=== PATIENT | female | born 1995 | race Two or more races ===

== ENCOUNTER 2024-11-16 23:58 | Inpatient (IN) | payer OTHER ==
[2024-11-17] MEDS ORDERED: Carboprost Tromethamine 250 MCG/1 mL Vial IM PRN (02:16)
[2024-11-17] MEDS ORDERED: Sodium Chloride 0.9% 2.5 ML Syringe FLUSH PRN (02:16)
[2024-11-17] MEDS ORDERED: Misoprostol 25 MCG (1/4 of 100 MCG) Tab VAG PRN ×2 (02:16)
[2024-11-17] MEDS ORDERED: Terbutaline 1 MG/ML SDV SUBCUT PRN (02:16)
[2024-11-17] MEDS ORDERED: Water For Irrigation,Sterile 1,000 ML Container IRR PRN (02:16)
[2024-11-17] MEDS ORDERED: Sodium Chloride 0.9% 10 ML Syringe FLUSH PRN (02:16)
[2024-11-17] MEDS ORDERED: Ondansetron 4 MG/2 ML SDV IVPUSH PRN ×2 (02:16→16:50)
[2024-11-17] MEDS ORDERED: Oxytocin/0.9 % Sodium Chloride 30 UNIT/500 ML BAG IV SCH ×2 (02:30)
[2024-11-17] MEDS: Misoprostol 25 MCG (1/4 of 100 MCG) Tab PO PRN (03:25)
[2024-11-17 05:40] LABS: MEAN PLATELET VOLUME 10.0 fL (9.4-12.3); NRBC ABSOLUTE 0.00 K/uL (0.00-0.02); NRBC PERCENT 0.0 /100WBC (0.0-0.2); PLATELET COUNT,PLT 287 K/uL (150-400); RED BLOOD CELL COUNT 4.27 M/uL (4.10-5.30); WHITE BLOOD CELL COUNT,WBC 11.78 K/uL (3.9-11.3)
[2024-11-17] MEDS: Butorphanol 1 MG/ML SDV IVPUSH PRN (06:24)
[2024-11-17] MEDS: Lactated Ringers 1,000 ML IV SCH (06:41)
[2024-11-17] MEDS ORDERED: dexmedeTOMIDine HCl 200 MCG/2 ML SDV ONE (09:23)
[2024-11-17] MEDS: Ropivacaine HCl/PF 200 ML ONE (09:36)
[2024-11-17] MEDS ORDERED: ePHEDrine 50 MG/ML SDV IVPUSH PRN (09:47)
[2024-11-17] MEDS ORDERED: dexmedeTOMIDine HCl 200 MCG/2 ML SDV EPIDUR SCH (10:00)
[2024-11-17] MEDS ORDERED: Ropivacaine HCl/PF 400 MG in Premix Bag 1 BAG EPIDUR SCH (10:00)
[2024-11-17] MEDS ORDERED: Aluminum Hydroxide/Magnesium Hydroxide/Simethicone Susp 30 ML Cup PO PRN (16:50)
[2024-11-17 17:04] LABS: PH,UMBILICAL ARTERIAL 7.24 (7.18-7.38)
[2024-11-17 17:06] LABS: PH,UMBILICAL VENOUS 7.32 (7.25-7.45)
[2024-11-17] MEDS: Benzocaine/Menthol 20%-0.5% Spray 78 GM Cannister TOP PRN (22:52)
[2024-11-17] MEDS: Witch Hazel Medicated Pads 40/Jar TOP PRN (22:53)
[2024-11-18 05:48] LABS: BASOPHILS ABSOLUTE AUTO 0.02 K/uL (0.00-0.20); BASOPHILS PERCENT AUTO 0.1 % (0.0-1.0); EOSINOPHILS ABSOLUTE AUTO 0.02 K/uL (0.00-0.45); EOSINOPHILS PERCENT AUTO 0.1 % (0.0-6.0); IMMATURE GRAN ABSOLUTE AUTO 0.12 K/uL (0.00-0.05); IMMATURE GRAN PERCENT AUTO 0.6 % (0.0-0.4); LYMPHOCYTES ABSOLUTE AUTO 1.97 K/uL (1.00-4.80); LYMPHOCYTES PERCENT AUTO 10.0 % (24.0-44.0); MEAN PLATELET VOLUME 9.6 fL (9.4-12.3); MONOCYTES ABSOLUTE AUTO 1.12 K/uL (0.00-0.80); MONOCYTES PERCENT AUTO 5.7 % (0.0-8.0); NEUTROPHILS ABSOLUTE AUTO 16.36 K/uL (1.80-7.70); NEUTROPHILS PERCENT AUTO 83.5 % (41.0-71.0); NRBC ABSOLUTE 0.00 K/uL (0.00-0.02); NRBC PERCENT 0.0 /100WBC (0.0-0.2); PLATELET COUNT,PLT 259 K/uL (150-400); RED BLOOD CELL COUNT 3.58 M/uL (4.10-5.30); WHITE BLOOD CELL COUNT,WBC 19.61 K/uL (3.9-11.3)
[2024-11-18] MEDS: Lanolin 100% Cream 7 GM Tube TOP PRN (13:29)
== END 2024-11-19 14:30 | disposition home or self-care (01) | DRG 807 ==
LOC: MW.OBCHECK 23:58 → MW.OB 11-17 → MW.OBCHECK 11-17 02:27 → MW.OB 11-17 02:29 → OBSVTOIN 11-17 16:13 → MW.OB 11-17 22:05
PROVIDERS: ADMIT Obstetrics & Gynecology; ATTEND Obstetrics & Gynecology
PROC: 0KQM0ZZ Repair Perineum Muscle, Open Approach (ICD-10-PCS; principal; 2024-11-17)
PROC: 10E0XZZ Delivery of Products of Conception, External Approach (ICD-10-PCS; 2024-11-17)
PROC: 4A1HXCZ Monitoring of Products of Conception, Cardiac Rate, External Approach (ICD-10-PCS; 2024-11-17)
PROC: 3E0R3BZ Introduction of Anesthetic Agent into Spinal Canal, Percutaneous Approach (ICD-10-PCS; 2024-11-17)
PROC: 00HU33Z Insertion of Infusion Device into Spinal Canal, Percutaneous Approach (ICD-10-PCS; 2024-11-17)
DX: O42.02 Full-term premature rupture of membranes, onset of labor within 24 hours of rupture (principal); Z37.0 Single live birth; Z3A.37 37 weeks gestation of pregnancy; O70.1 Second degree perineal laceration during delivery
CPT/HCPCS: 01967; 36415; 59025; 59409; 82803; 84112; 85025; 85027; 86592; 86850; 86900; 86901; A9270-GY; J0595; J0665; J2795; J7120